=== PATIENT | female | born 1965 | race African-American/Black ===

== ENCOUNTER 2024-09-09 20:08 | Emergency (ER) | payer BC, SELFPAY ==
[2024-09-09 20:13] VITALS: BP 133/83
[2024-09-09 20:32] LABS: % Basophils 0.4 % (0-2); % Eosinophils 0.9 % (0-6); % Immature Granulocytes 0.1 % (0-0.5); % Lymphocytes 43.5 % (20.5-51.1); % Monocytes 11.2 % (1.7-9.3); % Neutrophils 43.9 % (42.2-75.2); Absolute Eosinophils 0.1 10^3/uL (0-0.7); Absolute Lymphocytes 3.1 10^3/uL (1.2-3.4); Absolute Monocytes 0.8 10^3/uL (0.1-0.6); Absolute Neutrophils 3.1 10^3/uL (1.4-6.5); Hemoglobin 12.4 g/dL (12.0-16.0); Mean Corp Hgb Conc. 31.8 g/dL (33.0-37.0); Mean Corpuscular Volume 84.8 fL (81.0-99.0); Mean Platelet Volume 9.4 fL (7.4-10.4); Nucleated Red Blood Cells % 0 %; Platelet Count 232 10^3/uL (130-400); White Blood Cell Count 7.1 10^3/uL (4.8-10.8)
[2024-09-09 20:43] LABS: ALT (SGPT) 22 U/L (0-35); AST (SGOT) 24 U/L (14-36); Albumin 4.3 g/dl (3.5-5.0); Alkaline Phosphatase 93 U/L (38-126); Blood Urea Nitrogen 10 mg/dl (7-17); Calcium 9.5 mg/dl (8.4-10.2); Carbon Dioxide 26 mmol/L (22-30); Chloride 107 mmol/L (98-107); Glucose 89 mg/dl (70-99); Lipase 106 U/L (23-300); Potassium 3.5 mmol/L (3.5-5.1); Sodium 140 mmol/L (135-145); Total Bilirubin 1.2 mg/dl (0.2-1.3); Total Protein 7.5 g/dl (6.3-8.2); eGFR > 60.00
--- NOTE | 2024-09-09 22:47 | ED.GENMED ---
History of Present Illness
General
Chief Complaint: Abdominal Pain
Time Seen by Provider: 09/09/24 22:35
History of Present Illness
History of Present Illness:
59-year-old female history of asthma, atrial fibrillation, migraines presenting with diffuse abdominal pain for the past 1 week. Patient states that she had a routine colonoscopy on 08/31. Patient states that she was having abdominal cramping and
constipation a week afterwards. Patient reports using milk of magnesia with improvement in constipation. Patient reports continued diffuse abdominal pain. Patient denies nausea, vomiting, diarrhea or urinary symptoms.
Past History
Past History
ED Past Medical History: Arrthythmia (Atrial fib), Asthma, Valvular disease and Other (PE)
ED Past Surgical History: (X2), Gynecological (Uterine embolization) and Orthopedic (Carpal tunnel surgery �2, meniscus surgery right knee)
Social History
Tobacco: Non-smoker
Alcohol: None
Drug: None
Personal:
Living: with family
Employment: Employed
Family History
Family History: Other (Noncontributory)
Phy Exam
Physical Exam
Physical Exam:
General: Alert, no acute distress
Head: NCAT
Eyes: clear conjunctiva
Neck: supple
Cardiac: regular rate and rhythm, no murmur
Lungs: clear to auscultation bilaterally. No wheezes, rales, or rhonchi. Speaking full unlabored sentences. No respiratory distress.
Abdomen: soft, nondistended diffuse tenderness. No rebound or guarding.
MSK: no lower extremity edema bilaterally. No deformity
Skin: warm, dry
Neuro: Alert and oriented x3. no focal deficits
Course
Orders/Labs/Results
Orders:
Orders
09/09/24 20:22
Complete Blood Count/With Diff Urgent
Comprehensive Metabolic Panel Urgent
Lipase Urgent
09/09/24 22:47
CT Abd/pelvis W Iv Cont Urgent
Comment:
Reason For Exam: diffuse abdominal pain
09/09/24 23:01
UA Reflex to Culture [Urinalysis Reflex To Culture] Urgent
Date Specimen was Collected: 09/09/24
Time Specimen was Collected: 22:58
Urine Microscopic Reflex Cult Urgent
Urine Culture Urgent
[facility] Source: U
Specimen Description:
Date Specimen was Collected: 09/09/24
Time Specimen was Collected: 22:58
09/10/24 00:44
Amoxicillin 875 mg/Clav 125 mg [Augmentin 875 mg/125 mg] 1 tablet PO NOW STA
Abnormal Lab Results
09/09/24 09/09/24
20:22 23:01
MCHC 31.8 L g/dL
(33.0-37.0)
Absolute Monos (auto) 0.8 H 10^3/uL
(0.1-0.6)
Monocytes % 11.2 H %
(1.7-9.3)
Leukocyte Esterase Rfl 3+ A
(Negative)
Urine Bacteria (Reflex) Few A
(Negative)
09/09/24 20:22
09/09/24 20:22
Vital Signs
Initial and Last Documented VS:
Initial Vital Signs
Temp Pulse Resp BP Pulse Ox
98.3 F 96 20 133/83 99
09/09/24 20:13 09/09/24 20:13 09/09/24 20:13 09/09/24 20:13 09/09/24 20:13
Last Documented Vital Signs
Temp Pulse Resp BP Pulse Ox
98.5 F 70 16 116/71 100
09/09/24 22:58 09/09/24 22:58 09/09/24 22:58 09/09/24 22:58 09/09/24 22:58
MDM/Problems Addressed
Differential Diagnosis Includes:
Diverticulitis, constipation, appendicitis, UTI, colitis, abscess, perforation
MDM/Problems Addressed:
Labs reviewed. WBC 7.1. Creatinine, electrolytes within normal limits. UA shows possible UTI. CT abdomen pelvis shows moderate stool filled cecum and ascending colon. Mild wall thickening of right sided colon with faint hazy Jose Miguel colonic fat
stranding may reflect nonspecific colitis. No bowel obstruction, abscess or free air. Given symptoms have been ongoing for at least 1 week, will start on Augmentin for possible colitis/UTI. Discussed results with patient at bedside. Advised take
MiraLAX daily for constipation. Stable for discharge with GI and PCP follow-up
*Critical Care Note
Total Time (30-74mins, 75-104mins- exclusive of procedures): Not Applicable
ED Attending Note
-
Portions of this chart may have been created with voice recognition software.� Occasional wrong word or��sound alike� substitutions may have occurred due to the inherent limitations of voice recognition software.
Discharge Plan
Departure
Patient Disposition: Home (Routine Discharge)
Date of Disposition: 09/10/24
Time of Disposition: 00:45
Patient with high blood pressure during this ER visit?: Yes
Discharge Problem:
Colitis, UTI (urinary tract infection)
Instructions: Colitis - Discharge instructions
Prescriptions:
New
amoxicillin-pot clavulanate 875-125 mg tablet
1 tab PO BID Qty: 14 0RF
No Action
multivitamin Tablet
1 tab PO DAILY
phentermine 15 mg Capsule
15 mg PO DAILY
topiramate 50 mg Tablet
50 mg PO DAILY
zolpidem [Ambien CR] 6.25 mg Tablet,Ext Release Multiphase
6.25 mg PO HS PRN (Reason: sleep)
cholecalciferol (vitamin D3) [Vitamin D3] 125 mcg (5,000 unit) Tablet
125 mcg PO Q48H
Referrals:
Addis Cheng DO [Family Provider] -
Activity Restrictions/Additional Instructions:
Take Augmentin twice daily for the next 7 days
take MiraLAX daily for constipation
Follow-up with primary care doctor and GI next week
Return to the emergency department for fever or new/worsening symptoms
Interventions
Interventions:
*Risk Screen - Suicide Last Done: 09/09/24 22:49
*General Assessment Last Done: 09/09/24 20:13
*Neglect/Abuse Screening Last Done: 09/09/24 22:49
*ED COVID-19 Vaccine History Last Done: 09/09/24 22:49
EB-Vbnntc-Sxzadfoytl Assessment Last Done: 09/09/24 23:08
Discharge Date and Time
Print Language: [place]
[2024-09-09 22:49] VITALS: BMI 26.8
[2024-09-09 22:58] VITALS: BP 116/71
--- NOTE | 2024-09-09 23:10 | EDRN ---
Pt had a colonoscopy in [place] on 08/31. Pt says she has had constant diffuse abdominal pain since, described as dull and achy. Pt says eating worsens the pain. Pt had constipation which has resolved. Pt is always chilled. Pt denies cp, sob,
n/v/d/c-now, urinary symptoms, bleeding in stool/urine.
[2024-09-09 23:11] LABS: Urine Albumin Negative (Neg - Trace); Urine Bilirubin Negative (Negative); Urine Character Clear (Clear); Urine Color Yellow; Urine Glucose Negative (Negative); Urine Ketone Negative (Negative); Urine Leukocyte 3+ (Negative); Urine Nitrite Negative (Negative); Urine Occult Blood Negative (Negative); Urine Urobilinogen Negative (Neg - 1+)
[2024-09-09 23:43] LABS: Urine Bacteria Few (Negative); Urine Mucus Few; Urine Red Blood Cell 0-2 /HPF (0-2)
[2024-09-10] MEDS: AUGMENTIN 875 MG/125 MG 1 TABLET PO (01:20)
[2024-09-10 01:22] VITALS: BP 127/72
== END 2024-09-10 01:30 | disposition home or self-care (01) ==
LOC: EMR 20:08
PROVIDERS: Emergency Medicine; EMERGENCY PHYSICIAN Emergency Medicine; FAMILY PHYSICIAN Family Medicine
DX: K52.9 Noninfective gastroenteritis and colitis, unspecified (principal); N39.0 Urinary tract infection, site not specified; J45.909 Unspecified asthma, uncomplicated; I48.91 Unspecified atrial fibrillation
CPT/HCPCS: 99284; 74177; 80053; 81003; 81015; 83690; 85025; 87086; Q9967